=== PATIENT | male | born 1960 | race Caucasian/White ===

== ENCOUNTER → 2016-12-30 | Outpatient (CLI) | payer OTHER ==
[~2016-12-30] MED LIST: ALBUAER2 INH; ASPI81TA28 PO; MOME100A INH
[2016-12-30 18:43] LABS: CHOLESTEROL/HDL RATIO 3.6; PROSTATE SPECIFIC ANTIGEN 4.83 ng/ml (0.000-4.000)
== END | disposition home or self-care (01) ==
LOC: C.LABMFLN 13:04
PROVIDERS: ATTEND Family Medicine
DX: E78.00 Pure hypercholesterolemia, unspecified (principal)

== ENCOUNTER → 2017-05-21 | Outpatient (CLI) | payer OTHER ==
[~2017-05-21] MED LIST changes: +ALBU18002 INH; -ALBUAER2 INH; -ASPI81TA28 PO; +NAPR1TAB9 PO
--- NOTE | 2017-05-21 11:39 | DIAGNOSTIC IMAGING REPORT ---
CHEST 2 VIEWS ROUTINE CLINICAL HISTORY: PRE-OPERATIVE TESTING COMPARISON STUDY: No previous studies for comparison. FINDINGS: The bones soft tissues and hemidiaphragms are normal. The cardiomediastinal silhouette is normal. The lungs are clear. The pulmonary vasculature is normal. IMPRESSION: Negative chest. The above report was generated using voice recognition software. It may contain grammatical, syntax or spelling errors. Electronically signed by: Sav Lane M.D. 05/21/2017 11:37 AM Dictated Date/Time: 05/21/2017 11:37 AM
[2017-05-21 12:53] LABS: BASO % 0.7 %; BASO ABS # 0.04 K/uL (0-0.2); EOS % 7.9 %; EOS ABS # 0.44 K/uL (0-0.5); HEMATOCRIT 44.5 % (42-52); HEMOGLOBIN 15.6 g/dL (14.0-18.0); IG# 0.01 K/uL (0.00-0.02); LYMPH % 30.5 %; LYMPH ABS # 1.71 K/uL (1.2-3.4); MEAN CELL VOLUME 87.6 fL (80-100); MEAN CORPUSCULAR HEMOGLOBIN 30.7 pg (25-34); MEAN CORPUSCULAR HGB CONC 35.1 g/dl (32-36); MEAN PLATELET VOLUME 10.6 fL (7.4-10.4); MONO % 14.1 %; MONO ABS # 0.79 K/uL (0.11-0.59); NEUT % 46.6 %; NEUT ABS # 2.61 K/uL (1.4-6.5); PLATELET COUNT 208 K/uL (130-400); RED CELL DISTRIBUTION WIDTH CV 12.8 % (11.5-14.5); RED CELL DISTRIBUTION WIDTH SD 40.9 fL (36.4-46.3)
[2017-05-21 13:03] LABS: INR 0.9 (0.9-1.1); PTT PATIENT 25.7 SECONDS (21.0-31.0)
[2017-05-21 13:19] LABS: BLOOD UREA NITROGEN 26 mg/dl (7-18); CALCIUM 8.8 mg/dl (8.5-10.1); CARBON DIOXIDE 28 mmol/L (21-32); CREATININE 0.93 mg/dl (0.60-1.40); GLUCOSE 100 mg/dl (70-99); POTASSIUM 4.2 mmol/L (3.5-5.1); SODIUM 136 mmol/L (136-145)
== END | disposition home or self-care (01) ==
LOC: C.CPL 11:02
PROVIDERS: ATTEND Orthopaedic Surgery Sports Medicine
DX: Z01.812 Encounter for preprocedural laboratory examination (principal); Z01.810 Encounter for preprocedural cardiovascular examination; R97.20 Elevated prostate specific antigen [PSA]

== ENCOUNTER → 2017-06-02 | Outpatient (CLI) | payer OTHER ==
[~2017-06-02] MED LIST changes: +GADAVIST IV PRN
--- NOTE | 2017-06-02 09:25 | DIAGNOSTIC IMAGING REPORT ---
PROSTATE MRI COMBO CLINICAL HISTORY: 56 years-old Male presenting with R97.20 Elevated PSAno latex allergy, no iodine allergy, not diab. PSA 4.2 ng/mL. TECHNIQUE: Multisequence, multiplanar MR imaging of the prostate was performed before and after the administration of intravenous contrast. Additional postprocessing was performed on a separate [place] workstation by the radiologist for 3-D volumetric segmentation of the prostate and contouring of region(s) of interest (JC) for targeting. IV contrast: 9.5 cc of Gadavist. COMPARISON: None. FINDINGS: Prostate: The prostate measures 4.8 cm (DynaCAD prostate boundary segmentation volume 31 mL). Mild changes of benign prostatic hyperplasia. Precontrast T1 weighted imaging demonstrates no evidence of intrinsic T1 hyperintensity to suggest hemorrhage. Seminal vesicles normal. No suspicious lesion is apparent in the transition or peripheral zones. Bladder: Normal. Bowel: Visualized portion of the rectum normal. Peritoneum: No free fluid in the pelvis. Lymph nodes: No lymphadenopathy in the visualized portion of the pelvis. Vasculature: Iliac vessels patent. Abdominal wall: Small fat-containing bilateral inguinal hernias. Osseous structures: No suspicious lesions identified. Cystic change seen within the left acetabulum and left femoral head. This likely represents osteoarthritis. IMPRESSION: 1. No suspicious lesions identified within the prostate gland. 2. Mild benign prostatic hyperplasia. Electronically signed by: Dominic Pratt M.D. 06/02/2017 9:24 AM Dictated Date/Time: 06/02/2017 9:09 AM
== END | disposition home or self-care (01) ==
PROVIDERS: ATTEND Urology
DX: R97.20 Elevated prostate specific antigen [PSA] (principal)

== ENCOUNTER 2017-06-10 05:05 | Inpatient (IN) | payer OTHER ==
[2017-05-16 13:36] VITALS: Ht 180.3 cm; Wt 97.7 kg
--- NOTE | 2017-06-03 15:35 | HISTORY & PHYSICAL EXAMINATION ---
DATE OF ADMISSION: 06/10/2017 CHIEF COMPLAINT: Left hip pain. 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 He has about a 6-year history of increasing left hip pain and discomfort that started when he was playing racquetball. It felt like some acute pain in his hip. He thought he had a labral tear. Since then, he has had persistent pain and discomfort in his hip, gradually gotten worse. He has seen Dr. Ramirez and Dr. Schulz both. They have discussed hip surgery, but he had never proceeded. Over time, his pain has gotten worse. If he walks any prolonged period of time, he has got significant discomfort and limitations. He has got groin pain and thigh pain. He has become much less active due to his pain. He would like to have his hip fixed. PAST MEDICAL HISTORY: Asthma. PAST SURGICAL HISTORY: 1. Left forearm fracture, age 5 with limited motion. 2. Colonoscopy. 3. [place] teeth extraction. ALLERGIES: None. CURRENT MEDICINES: 1. Dulera 2 puffs twice a day as needed. 2. ProAir 2 puffs every 6 hours p.r.n. 3. Naproxen p.r.n. 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 He is . One to two drinks per week. He does not smoke. FAMILY HISTORY: Significant for heart disease, rheumatoid arthritis, aneurysm. REVIEW OF SYSTEMS: Negative for diabetes, neurologic problems, vascular problems, bleeding disorders. Denies any chest pain. No shortness of breath. No evidence of DVT or PE. PHYSICAL EXAMINATION: GENERAL: Reveals a healthy, pleasant, middle-aged male. He looks to be in good health. HEENT: Benign. NECK: Supple. No lymphadenopathy. LUNGS: Clear to auscultation. HEART: Regular rate and rhythm. ABDOMEN: Soft, nontender, nondistended. EXTREMITIES: Grossly neurovascularly intact except as follows: Examination of the left hip and leg reveals, patient walks with an antalgic gait. He does limp on his left side. He walks with his foot slightly externally rotated. Leg lengths clinically appear pretty equal. He has got pretty stiff hip with internal rotation of -10. External rotation of 25 degrees. He has got about 10-degree flexion contracture. He is neurologically intact. X-RAYS: X-rays of the left hip reviewed. It shows advanced left hip DJD. He has got complete loss of his joint space. He has got cystic change of the femoral head and acetabulum. 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 His symptoms have just gradually gotten worse over the past 6 years. He has failed conservative treatment and would like to have his left hip replaced. PLAN: We will take him to the operating room and do a left total hip replacement. The risks and benefits of this procedure were explained to patient, including but not limited to DVT, PE, , infection, neurologic injury, vascular injury, bleeding problem, pain, limited range of motion, stiffness, failure to relieve symptoms, incomplete relief of symptoms, need for further surgery in the future, fracture, leg length inequality, nerve palsy, dislocation, etc. The patient understands and desires to proceed. Informed consent was obtained. As far as discharge plans, he is planning to be discharged to home and likely use [facility] home health program. He has stopped his Naprosyn 10 days preoperatively preop. MTDD
[~2017-06-10] VITALS: Ht 180.3 cm; Wt 97.7 kg
[2017-06-10] VITALS (22 sets, daily range): BP systolic 115–148; BP diastolic 64–89; PULSE 53–73; TEMP 36.4–37; O2SAT 92–99
[~2017-06-10 05:05] MED LIST changes: -GADAVIST IV PRN
[2017-06-10] MEDS ORDERED: FAMOTIDINE 20 MG TAB PO SCH (06:00)
[2017-06-10] MEDS ORDERED: LACTATED RINGER'S 1000ML 500 ML IV SCH (06:00)
[2017-06-10] MEDS ORDERED: GABAPENTIN 300 MG CAP PO SCH (06:00)
[2017-06-10] MEDS ORDERED: LACTATED RINGER'S 1000ML 1,000 ML IV SCH (06:00)
[2017-06-10] MEDS ORDERED: CEFAZOLIN 2000MG IV PUSH 10 ML IV SCH (06:00)
[2017-06-10] MEDS ORDERED: METOCLOPRAMIDE HCL 10 MG TAB PO SCH (06:00)
[2017-06-10] MEDS ORDERED: ACETAMINOPHEN 500 MG TAB PO SCH (06:00)
[2017-06-10] MEDS ORDERED: LACTATED RINGER'S 1000ML IV SCH (06:00)
[2017-06-10] MEDS ORDERED: SCOPOLAMINE 1.5 MG TDSY TD SCH (06:00)
[2017-06-10] MEDS ORDERED: PROPOFOL IV EMULSION 10 MG/ML 20 ML VIAL IV ONE ×2 (06:21→08:00)
[2017-06-10] MEDS ORDERED: LIDOCAINE HCL 2% 2 ML VIAL (20MG/ML) ONE ×2 (06:22→07:08)
[2017-06-10] MEDS ORDERED: MIDAZOLAM HCL 1 MG/ML 2ML VIAL ONE (06:22)
[2017-06-10] MEDS ORDERED: FENTANYL CITRATE INJ 50 MCG/1 ML 2 ML VIAL ONE (06:23)
[2017-06-10] MEDS ORDERED: BUPIVACAINE/EPINEPHRINE 0.5% MPF 1:200,000 30 ML VIAL ONE (06:27)
[2017-06-10] MEDS ORDERED: BACITRACIN 50000 UNIT VIAL ONE (06:27)
[2017-06-10] MEDS ORDERED: BUPIVACAINE 0.5 % 5 MG/1 ML PF 10ML VIAL ONE (06:29)
[2017-06-10] MEDS ORDERED: TRANEXAMIC ACID INJ 1,000 MG in SYRINGE 0 ML IV SCH (06:30)
--- NOTE | 2017-06-10 06:43 | History & Physical Bridge Note ---
H&P Re-Evaluation Bridge Note: I have examined the patient, reviewed the History & Physical and in the interval since the performance of the History & Physical I have noted the following changes of clinical significance: No changes noted
[2017-06-10] MEDS ORDERED: MORPHINE SULFATE 1MG/1ML 30ML VIAL IV ONE (06:47)
[2017-06-10] MEDS ORDERED: GLYCOPYRROLATE INJ 0.2 MG/ML VIAL ONE (07:28)
[2017-06-10] MEDS ORDERED: ONDANSETRON INJ 2 MG/ML 2 ML VIAL ONE (07:38)
[2017-06-10] MEDS ORDERED: DEXAMETHASONE SOD INJ 4 MG/ML VIAL ONE (07:39)
[2017-06-10] MEDS ORDERED: EpHEDrine SULFATE INJ 50 MG/ML AMP ONE (07:56)
--- NOTE | 2017-06-10 08:51 | [facility] Post Operative Brief Note ---
Immediate Operative Summary Operative Date Jun 10, 2017. Pre-Operative Diagnosis Left Hip Degenerative Joint Disease Post-Operative Diagnosis Same as preop Procedure(s) Performed Left Total Hip Arthroplasty Surgeon Dr. Solitario Diagrammer Surgeon(s) Matthew Wheeler PA-C Estimated Blood Loss 250 ML Findings Consistent with Post-Op Diagnosis Fluids (cc crystalloids) 1100 cc Specimens A. Left Femoral Head Drains None Anesthesia Type Spinal MAC Complication(s) none Disposition Accompanied Pt To Recover: yes Disposition: Recovery Room / PACU
[2017-06-10] MEDS ORDERED: MAGNESIUM HYDROXIDE SUSP 30 ML UDC PO PRN (09:00)
[2017-06-10] MEDS ORDERED: SILVER SULFADIAZINE 1% CR 50 GM JAR EXT PRN (09:00)
[2017-06-10] MEDS ORDERED: METOCLOPRAMIDE HCL INJ 5 MG/ML 2 ML VIAL IV PRN (09:00)
[2017-06-10] MEDS ORDERED: BISACODYL 10 MG SUPP PR PRN (09:00)
[2017-06-10] MEDS ORDERED: ZOLPIDEM TARTRATE 5 MG TAB PO PRN (09:00)
[2017-06-10] MEDS ORDERED: TAMSULOSIN HCL 0.4 MG CAP PO PRN (09:00)
[2017-06-10] MEDS ORDERED: CEFAZOLIN IV 2,000 MG in DEXTROSE 5% 50ML 50 ML IV SCH (09:00)
[2017-06-10] MEDS ORDERED: ALUMINUM/MAGNESIUM/SIMETH (MAALOX MAX) 30 ML UDC PO PRN (09:00)
[2017-06-10] MEDS ORDERED: ALBUTEROL HFA INHALER 8.5 GM INH PRN (09:00)
[2017-06-10] MEDS ORDERED: SODIUM CHLORIDE 0.9% 1000ML 1,000 ML IV PRN (09:13)
[2017-06-10] MEDS ORDERED: NALOXONE HCL INJ 1 MG in SODIUM CHLORIDE 0.9% 1000ML 1,000 ML IV PRN ×4 (09:13)
[2017-06-10] MEDS ORDERED: LACTATED RINGER'S 1000ML 500 ML IV PRN (09:13)
[2017-06-10] MEDS ORDERED: NALOXONE HCL INJ 0.08 MG in SYRINGE 1.8 ML IV PRN (09:13)
[2017-06-10] MEDS ORDERED: MoRPHine SULFATE PF 1 MG/ML 10 ML AMP/VIAL EPI PRN (09:15)
[2017-06-10] MEDS ORDERED: EpHEDrine SULFATE INJ 50 MG/ML AMP IV PRN (09:15)
[2017-06-10] MEDS ORDERED: NO NARCOTICS OR SEDATIVES SCH (09:15)
[2017-06-10] MEDS ORDERED: PROMETHAZINE HCL INJ 25 MG in SODIUM CHLORIDE 0.9% 50ML 50 ML IV PRN (09:15)
[2017-06-10] MEDS ORDERED: DiphenhydrAMINE HCL 50 MG/ML VIAL IV PRN (09:15)
[2017-06-10] MEDS ORDERED: NALBUPHINE HCL INJ 10 MG/ML AMP IV PRN (09:15)
[2017-06-10] MEDS ORDERED: DC INTRASPINAL MORPHINE SCH (09:15)
[2017-06-10] MEDS ORDERED: NALOXONE HCL 0.4 MG/1 ML VIAL/CARP IV PRN (09:15)
[2017-06-10] MEDS ORDERED: ONDANSETRON INJ 2 MG/ML 2 ML VIAL IV PRN (09:15)
--- NOTE | 2017-06-10 09:16 | Anesthesiology Progress Note ---
Anesthesia Post Op Note Date & Time Jun 10, 2017 at 09:16 Vital Signs Pain Intensity: 0 Vital Signs Past 12 Hours Date Time Temp Pulse Resp B/P (MAP) Pulse Ox O2 Delivery O2 Flow Rate FiO2 06/10/17 09:10 64 20 118/73 100 Oxymask 10 06/10/17 09:00 66 17 126/81 100 Oxymask 10 06/10/17 08:50 36.0 67 14 110/71 100 Oxymask 10 06/10/17 05:40 36.7 57 20 148/89 94 Room Air Notes Mental Status: alert / awake / arousable, participated in evaluation Pt Amnestic to Procedure: Yes Nausea / Vomiting: adequately controlled Pain: adequately controlled Airway Patency, RR, SpO2: stable & adequate BP & HR: stable & adequate Hydration State: stable & adequate Neuraxial Anesthesia: was administered, sensory block is resolving Anesthetic Complications: no major complications apparent
--- NOTE | 2017-06-10 09:32 | DIAGNOSTIC IMAGING REPORT ---
AP PELVIS, CROSSTABLE LATERAL LEFT HIP History: Left total hip arthroplasty. Degenerative arthritis. Postop. FINDINGS: The patient is status post a left total hip arthroplasty. The hardware is intact. No fracture or dislocation. Skin cynthia are in place. IMPRESSION: Left total hip arthroplasty. No evidence for hardware complication. Electronically signed by: Dominic Pratt M.D. 06/10/2017 9:31 AM Dictated Date/Time: 06/10/2017 9:30 AM
--- NOTE | 2017-06-10 09:32 | OPERATIVE REPORT ---
DATE OF OPERATION: 06/10/2017 SURGEON: Heber Solitario MD RADIATION CONTROL TECHNICIAN: KERWIN Crowell PREOPERATIVE DIAGNOSIS: Left hip degenerative joint disease. POSTOPERATIVE DIAGNOSIS: Same. PROCEDURE PERFORMED: Left uncemented ceramic on highly cross-linked polyethylene total hip arthroplasty. COMPLICATIONS: None. ESTIMATED BLOOD LOSS: 250 mL. FLUID REPLACEMENT: 1100 mL crystalloid fluid replacement. ANESTHESIA: Spinal. DRAINS: None. SPECIMENS: Left femoral head sent for pathology. 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 He failed conservative treatment. X-rays reveal advanced left hip DJD. He elected to proceed with surgical treatment. OPERATIVE FINDINGS: Operative findings reveal advanced left hip DJD. He had extensive grade 4 changes of the femoral head and acetabulum. Fairly large medial osteophyte. He had anterior osteophytes around the acetabulum. He also had a fairly contracted and tight hip. OPERATIVE IMPLANTS: Operative implants consisted of: 1. Biomet G7 size 54-mm acetabular shell. 2. A 6.5 cancellous acetabular screws, one at 35 mm length and one at 30 mm length. 3. An apex hole eliminator. 4. Highly cross-linked polyethylene liner with 54 mm outer diameter and 36 mm inner diameter with a currie placed inferior and posterior. 5. A DePuy size 13.5 small stature AML femoral stem. 6. A +5/36 mm ceramic articular ball. OPERATIVE PROCEDURE: The patient was taken to the operating room, identified and placed on the operating table in the supine position. All contact areas were appropriately padded. IV antibiotics were provided by anesthesia team. A spinal anesthetic had been implemented in the holding area. Real catheter was placed in sterile fashion. The patient was then placed in the right lateral decubitus position. An axillary roll was placed. Stulberg hip positioner was used for positioning. Left hip and leg were then prepped and draped in the usual sterile fashion. A posterolateral approach to the left hip was then performed through a curvilinear incision centered over the greater trochanter. Sharp dissection was carried through the subcutaneous tissues down to the level of the IT band and gluteal fascia. The IT band and gluteal fascia were incised longitudinally in line with skin incision. The underlying greater trochanteric bursa was excised. The piriformis and external rotators were tagged and taken off the posterior aspect of the hip joint capsule. Great care was taken throughout the procedure to protect the sciatic nerve at all times. Posterior capsulotomy was then performed leaving a large flap for later repair. Hip was internally rotated and dislocated. Femoral neck osteotomy cut was made with the final cut about 11 mm above the lesser trochanter. Femoral head was removed and sent for pathology. The femur was retracted anteriorly. Attention was then drawn to the acetabulum. The acetabulum labrum was excised. The pulvinar fat was excised. Sequential reaming of the acetabulum was then performed beginning with a size 49 and progressing up to a 53. A 54-mm Biomet G7 acetabular shell was then placed in about 40 degrees of lateral opening and 20 degrees of anteversion. It was fixed with two 6.5 cancellous acetabular screws. An anterior osteophyte was removed. A trial liner was placed. Attention was then drawn to the femur. The proximal femur was entered with cookie cutter followed by canal finder and lateralizing reamer. Sequential reaming of the femur was then performed beginning with a size 9 and progressing up to a 13. We got pretty good chatter even at 12. We broached beginning with a size 10.5 small broach and progressing up to 13.5 small. It was fairly tight. There was a little extra cancellous bone, but I did not think enough to get the large implant in, so we elected to use the 13.5 small implant. Calcar reamer was used to smoothen off the calcar. I then trialed the hip. The +5/36 mm articular ball provided full stability and full extension and external rotation and flexion to 90 degrees and internal rotation to 50 degrees. I ended up placing a lip on the liner to maximize stability in flexion. Attention was then drawn toward placement of these implants. All trial implants were removed. An apex hole eliminator was placed. A highly cross-linked polyethylene liner with a currie placed inferior and posterior was placed. A 13.5 small stature AML femoral stem was placed. We got excellent diaphyseal fit. A +5/36 mm ceramic articular ball was placed. Hip was located and once again found to be stable. Attention was then drawn toward closing. The wound was irrigated with copious amounts of pulsatile lavage solution. I injected locally with 60 mL of 0.5% Marcaine with epinephrine. The posterior capsule and external rotators were repaired through drill holes with #2 Ti-Cron suture. The IT band and gluteal fascia were then closed with #1 PDS suture in running fashion. The subcutaneous tissues were then closed with 2 layers with the deep layer #1 Vicryl suture and subcutaneous tissues with 2-0 Dexon suture in a buried interrupted fashion. The skin was closed with skin cynthia. Leg was then cleaned and dried and a sterile dressing of Xeroform, 4 x 4, ABD pad and foam tape was applied. The patient then transferred to the recovery room in stable condition. The patient tolerated the procedure well with no complications. All needle and sponge counts were correct at the end of the operation. I attest to the content of the Intraoperative Record and any orders documented therein. Any exception s are noted below.
[2017-06-10] MEDS: D5W AND 1/2NSS + 20MEQ KCL 1,000 ML IV SCH ×2 (11:10→19:15)
[2017-06-10] MEDS: KETOROLAC TROMETHAMINE 30 MG/ML VIAL IV. SCH ×3 (11:11→21:03)
[2017-06-10] MEDS: DOCUSATE SODIUM 100 MG CAP PO SCH ×2 (11:12→20:58)
[2017-06-10] MEDS: MULTIVITAMIN TAB PO SCH (11:13)
[2017-06-10] MEDS: PANTOprazole SOD 40 MG TAB PO SCH (11:13)
[2017-06-10] MEDS: ASPIRIN 325 MG ECTAB PO SCH ×2 (11:39→20:59)
[2017-06-10] MEDS: ACETAMINOPHEN 500 MG TAB PO SCH ×2 (12:07→20:58)
[2017-06-10] MEDS ORDERED: TRANEXAMIC ACID INJ 1,000 MG in SODIUM CHLORIDE 0.9% 100ML 100 ML IV ONE (12:30)
[2017-06-10] MEDS: FERROUS GLUCONATE 324 MG TAB PO SCH ×2 (12:49→17:38)
[2017-06-10] MEDS: CHECK SCOPOLAMINE PATCH PLACEMENT SCH ×2 (16:00→23:56)
--- NOTE | 2017-06-10 16:35 | PROGRESS NOTE ---
DATE: 06/10/2017 SUBJECTIVE: A 56-year-old male postop from a left hip replacement. He is doing pretty well. Really not feeling much pain yet. No chest pain or shortness of breath. Not feeling dizzy or lightheaded. OBJECTIVE: VITAL SIGNS: Temperature is 36.8. Vital signs stable. GENERAL: Physical examination reveals a healthy, pleasant, middle-aged male. He is sitting up in bed and looks pretty comfortable. EXTREMITIES: Examination of the left hip and leg reveals the leg to be well aligned. Leg lengths were equal. The dressing is clean, dry and intact. His thigh is soft and supple. He is neurologically intact. He can dorsiflex and plantarflex his foot appropriately. X-RAYS: X-rays of the left hip from the recovery room were reviewed. It shows left uncemented total hip arthroplasty. Components looked to be in good position. No signs of problems. ASSESSMENT: A 56-year-old gentleman postop from a left hip replacement, doing well. His pain is controlled. He is neurologically intact. Hip is located. PLAN: 1. DVT prophylaxis including thigh-high TEDs, SCDs, and aspirin twice a day. 2. PT/OT. Weightbear as tolerated. Left total hip protocol. 3. Pain control. Doing well with current pain regimen. 4. IV antibiotics x24 hours. 5. Disposition: Plan to discharge to home likely with some home health once adequately recovered.
[2017-06-10] MEDS: CEFAZOLIN IV 2,000 MG in SYRINGE 5 ML IV SCH ×2 (16:39→23:56)
[2017-06-10] MEDS: SENNA 8.6 MG TAB PO SCH (20:59)
[2017-06-11] VITALS (8 sets, daily range): BP systolic 110–127; BP diastolic 63–83; PULSE 54–65; TEMP 36.9–37.3; O2SAT 92–95
[2017-06-11] MEDS: D5W AND 1/2NSS + 20MEQ KCL 1,000 ML IV SCH ×2 (01:29→09:23)
[2017-06-11] MEDS ORDERED: ONDANSETRON INJ 2 MG/ML 2 ML VIAL IV PRN (02:00)
[2017-06-11] MEDS ORDERED: OXYCODONE HCL IR 5 MG TAB (IMMEDIATE RELEASE) PO PRN (02:00)
[2017-06-11] MEDS ORDERED: MoRPHine SULFATE 2 MG/ML CARP IV PRN (02:00)
[2017-06-11] MEDS ORDERED: DiphenhydrAMINE HCL 50 MG/ML VIAL IV PRN (02:00)
[2017-06-11] MEDS ORDERED: NURSING VERBAL MED ORDER ONE (03:00)
[2017-06-11] MEDS: KETOROLAC TROMETHAMINE 30 MG/ML VIAL IV. SCH ×4 (03:04→21:27)
[2017-06-11] MEDS: ACETAMINOPHEN 500 MG TAB PO SCH ×3 (06:06→21:28)
[2017-06-11 06:12] LABS: BASO % 0.2 %; BASO ABS # 0.02 K/uL (0-0.2); EOS % 0.9 %; EOS ABS # 0.08 K/uL (0-0.5); HEMATOCRIT 35.5 % (42-52); HEMOGLOBIN 12.3 g/dL (14.0-18.0); IG# 0.03 K/uL (0.00-0.02); LYMPH % 19.7 %; LYMPH ABS # 1.74 K/uL (1.2-3.4); MEAN CELL VOLUME 87.2 fL (80-100); MEAN CORPUSCULAR HEMOGLOBIN 30.2 pg (25-34); MEAN CORPUSCULAR HGB CONC 34.6 g/dl (32-36); MONO % 17.6 %; MONO ABS # 1.56 K/uL (0.11-0.59); NEUT % 61.3 %; NEUT ABS # 5.42 K/uL (1.4-6.5); PLATELET COUNT 172 K/uL (130-400); RED CELL DISTRIBUTION WIDTH CV 12.7 % (11.5-14.5); WHITE BLOOD COUNT 8.85 K/uL (4.8-10.8)
[2017-06-11] MEDS ORDERED: ACET-24 PO (06:34)
[2017-06-11] MEDS ORDERED: RXC5 PO (06:34)
[2017-06-11] MEDS ORDERED: ASPEC325 PO (06:34)
--- NOTE | 2017-06-11 06:36 | Discharge Instructions ---
Discharge Instructions Date of Service Jun 11, 2017. Admission Reason for Admission: Left Hip Degenerative Joint Disease Discharge Discharge Diagnosis / Problem: Left Hip Replacement Discharge Goals Goal(s): Decrease discomfort, Improve function, Increase independence, Improve disease control, Therapeutic intervention Activity Recommendations Activity Limitations: per Instructions/Follow-up section (Total Hip Precautions ) . Instructions / Follow-Up Instructions / Follow-Up ACTIVITY RECOMMENDATIONS: Physical Therapy: * Aggressive physical therapy is not usually needed. You will learn to take care of yourself safely and walk. * Follow the "Hip Precautions Instructions." * In some cases, the social insurance specialist at the hospital will arrange to have a therapist come to your house for the first couple of weeks to help you learn these skills. * You need to practice on your own or with the help of a family member as needed. * When you learn these skills, most of the therapy can be done on your own. Home Exercise: * You were shown a series of exercises in the hospital. Do these exercises three to four times each day including the exercises you were shown in physical therapy. Walking: * Get up and walk several times each day. For the first four weeks, try not to stand or walk for more than one hour at a time. If you do stand or walk for more than one hour, you will not hurt anything, but your leg will likely swell. * As you feel comfortable, you may change from the walker or crutches to a cane and then to independent walking. MEDICATIONS: New Medicine: * You will likely be taking one or more of these medicines: 1. Oxycodone - Take, as directed, when you need it, every four to six hours to control your pain. 2. Aspirin - Thins your blood to lessen the chance of forming a blood clot. * The most common side effects of pain medicine and iron are nausea and constipation. If nausea or constipation is too much of a problem or if you have any questions about your new medicines or doses, call [facility] at [phone]. We will try to help you manage these issues. VERY IMPORTANT TO READ AND REVIEW" Pain: * The immediate post-operative period after hip replacement surgery is often quite painful. * You are given a prescription for pain medicine. You should take it, as directed, when you need it, especially before physical therapy and before going to bed. Pain that interferes with sleep is very common and can last several months. * You will likely need pain medicine for the first two to four weeks. It will not stop all of the pain. The pain will lessen and as you feel better, you may change to milder pain medicine such as Tylenol. * The most common side effects of pain medicine are nausea and constipation, so don't take more than you need. SPECIAL CARE INSTRUCTIONS: TEDs/Elastic Stockings: * The white elastic stockings help limit swelling and prevent blood clots from forming in your legs. The more you wear them, the more they work. * Wear them for six weeks. Prevention of Infection: * Take antibiotics one hour before any dental cleaning, dental work, urological procedure, gastrointestinal procedure or any invasive surgery in order to prevent your new joint from getting infected. * You may get the antibiotics from the doctor performing the procedure or you may call our office at before and we will call in a prescription to the pharmacy of your choice. Things to Watch For: * Drainage from the incision site that occurs more than one week after your surgery. * Severely increased leg pain or swelling. * Increased redness at the incision site. * Fever above 102 degrees Fahrenheit. * Unusual chest pain or shortness of breath. * Unusual pain or burning with urination. Call [facility] at with any of the above problems or if you have any questions about your medicines or recovery. FOLLOW UP VISIT: Make an appointment to see your doctor for approximately two weeks after surgery for a progress check and staple removal by calling the office at . Current Hospital Diet Patient's current hospital diet: Regular Diet Discharge Diet Recommended Diet: Regular Diet Procedures Procedures Performed: Left Total Hip Arthroplasty Pending Studies Studies pending at discharge: no Medical Emergencies . Who to Call and When: Medical Emergencies: If at any time you feel your situation is an emergency, please call [phone] immediately. . Non-Emergent Contact Non-Emergency issues call your: Surgeon . "Provider Documentation" section prepared by Heber Solitario. . VTE Core Measure Inpt VTE Proph given/why not?: Other Anticoagulation, T.E.D. Stockings, SCD's
[2017-06-11 06:39] LABS: CALCIUM 7.9 mg/dl (8.5-10.1); CREATININE 1.03 mg/dl (0.60-1.40); POTASSIUM 3.8 mmol/L (3.5-5.1)
--- NOTE | 2017-06-11 07:08 | PROGRESS NOTE ---
DATE: 06/11/2017 SUBJECTIVE: A 56-year-old gentleman postop day 1 from a left hip replacement. He is doing pretty well. Pain is controlled. Denies any chest pain or shortness of breath. Not feeling dizzy or lightheaded. OBJECTIVE: VITAL SIGNS: Temperature 37.0. Vital signs stable. GENERAL: Reveals a healthy, pleasant, middle-aged male. He is sitting up at his bedside chair and looks comfortable. EXTREMITIES: Examination of left hip and leg reveals the dressing to be clean, dry and intact. Thigh is soft and supple. Leg lengths are equal. He is neurologically intact. LABORATORY DATA: Hemoglobin 12.3. Hematocrit 35.5. Electrolytes are pending. ASSESSMENT: A 56-year-old gentleman postop day 1 from a left hip placement, doing pretty well. Pain is controlled. His hip is located. He is neurologically intact. PLAN: 1. DVT prophylaxis including thigh-high TEDs, SCDs, and aspirin twice a day. 2. PT/OT. Weightbearing as tolerated. Left total hip protocol. 3. Pain control, doing well with current pain regimen. 4. Disposition: Plan to discharge to home with some home health once adequately recovered.
[2017-06-11] MEDS: CHECK SCOPOLAMINE PATCH PLACEMENT SCH ×3 (08:00→23:46)
[2017-06-11] MEDS: FERROUS GLUCONATE 324 MG TAB PO SCH ×3 (09:23→18:02)
[2017-06-11] MEDS: DOCUSATE SODIUM 100 MG CAP PO SCH ×2 (09:24→21:27)
[2017-06-11] MEDS: PANTOprazole SOD 40 MG TAB PO SCH (09:24)
[2017-06-11] MEDS: ASPIRIN 325 MG ECTAB PO SCH ×2 (09:24→21:28)
[2017-06-11] MEDS: MULTIVITAMIN TAB PO SCH (09:24)
[2017-06-11] MEDS: TAPENTADOL ER 50 MG TABCR PO SCH ×2 (09:27→21:28)
[2017-06-11] MEDS: SENNA 8.6 MG TAB PO SCH (21:28)
[2017-06-12] MEDS: KETOROLAC TROMETHAMINE 30 MG/ML VIAL IV. SCH (03:13)
[2017-06-12] MEDS: ACETAMINOPHEN 500 MG TAB PO SCH (06:19)
[2017-06-12 07:53] VITALS: BP 133/78; PULSE 55; TEMP 36.8; O2SAT 94
[2017-06-12] MEDS: CHECK SCOPOLAMINE PATCH PLACEMENT SCH (08:10)
--- NOTE | 2017-06-12 08:11 | PROGRESS NOTE ---
DATE: 06/12/2017 SUBJECTIVE: A 56-year-old male postop day 2 from left total hip replacement. He is doing pretty well. Pain is controlled. No chest pain or shortness of breath. Not feeling dizzy or lightheaded. OBJECTIVE: VITAL SIGNS: Temperature 36.8. Vital signs stable. GENERAL: Reveals a pleasant, middle-aged male. He is sitting up at his bedside chair and looks comfortable. EXTREMITIES: Examination of the left hip reveals the dressing to be clean, dry and intact. Hip is located. Thigh is soft and supple. He is neurologically intact. ASSESSMENT: A 56-year-old gentleman postop day 2 from left total hip replacement, doing well. His pain is controlled. Hip is located. He is neurologically intact. PLAN: 1. DVT prophylaxis including thigh-high TEDs, SCDs, and aspirin twice a day. 2. PT/OT. Weight bear as tolerated. Left total hip protocol. 3. Pain control, doing well with current pain regimen. 4. Disposition: Plan to discharge to home with some home health later today.
[2017-06-12 08:20] VITALS: BP 133/78; PULSE 55; TEMP 36.8; O2SAT 94
[2017-06-12] MEDS: FERROUS GLUCONATE 324 MG TAB PO SCH (08:58)
[2017-06-12] MEDS: ASPIRIN 325 MG ECTAB PO SCH (08:58)
[2017-06-12] MEDS: PANTOprazole SOD 40 MG TAB PO SCH (08:58)
[2017-06-12] MEDS: DOCUSATE SODIUM 100 MG CAP PO SCH (08:58)
[2017-06-12] MEDS: MULTIVITAMIN TAB PO SCH (08:58)
[2017-06-12] MEDS: TAPENTADOL ER 50 MG TABCR PO SCH (08:59)
== END 2017-06-12 10:40 | disposition home health service (06) | DRG 470 ==
LOC: C.ACU 05:05 → C.3E 08:54 → ENRESERV 09:00
PROVIDERS: ADMIT Orthopaedic Surgery Sports Medicine; ATTEND Orthopaedic Surgery Sports Medicine
PROC: 0SRB04A Replacement of Left Hip Joint with Ceramic on Polyethylene Synthetic Substitute, Uncemented, Open Approach (ICD-10-PCS; principal; 2017-06-10 07:00)
DX: M16.12 Unilateral primary osteoarthritis, left hip (principal); J45.909 Unspecified asthma, uncomplicated; Z82.49 Family history of ischemic heart disease and other diseases of the circulatory system; Z82.61 Family history of arthritis

== ENCOUNTER → 2017-06-19 | Outpatient (CLI) | payer OTHER ==
[~2017-06-19] MED LIST changes: +ACET-24 PO; +ASPEC325 PO; +RXC5 PO
--- NOTE | 2017-06-19 15:30 | DIAGNOSTIC IMAGING REPORT ---
ADDENDUM Note is made of a segment of incomplete compression of the posterior tibial vein. This is associated with a slight degree of wall thickening. This potentially represents subsegmental combination of chronic and acute deep venous thrombus formation. IMPRESSION: Reevaluation of the study with additional information from Dr. Richardson suggests segmental deep venous thrombosis of the posterior tibial vein inferior to the knee on a segmental basis. This appears to be a combination of acute and chronic thrombosis. Note this report was to Dr. Richardson Electronically signed by: Sav Lane M.D. 06/19/2017 3:51 PM Dictated Date/Time: 06/19/2017 3:49 PM ORIGINAL REPORT L VENOUS DOPP LOWER EXT UNILAT CLINICAL HISTORY: CALF PAIN pain. Edema. TECHNIQUE: Venous Doppler COMPARISON STUDY: None FINDINGS: Normal study IMPRESSION: Normal study The above report was generated using voice recognition software. It may contain grammatical, syntax or spelling errors. Electronically signed by: Sav Lane M.D. 06/19/2017 3:29 PM Dictated Date/Time: 06/19/2017 3:28 PM
== END | disposition home or self-care (01) ==
LOC: C.ULTR 14:48
PROVIDERS: ATTEND Family Medicine
DX: M79.669 Pain in unspecified lower leg (principal)

== ENCOUNTER 2023-03-16 05:16 | Observation (INO) ==
--- NOTE | 2023-02-15 14:23 | PAT Medication Instructions ---
Medication Instructions Date of Service February 15, 2023 Home Medications Medication Instructions Recorded fluticasone 250 mcg-salmeterol 50 1 inh inhalation BID #180 ea 06/10/22 mcg/dose blistr powdr for inhalation (Wixela Inhub) apixaban 5 mg tablet (Eliquis) 5 mg PO BID #180 tabs 07/12/22 atorvastatin 20 mg tablet 20 mg PO QPM #180 tabs 07/12/22 tadalafil 10 mg tablet (Cialis) 10 mg PO DAILY PRN sexual activity 12/10/22 #14 tabs albuterol sulfate 90 mcg/actuation 1 - 2 puff inhalation 6XD PRN 01/06/23 aerosol inhaler (Ventolin HFA) Wheezing #25.5 grams fluticasone propionate 50 See Rx Instructions .Route 01/06/23 mcg/actuation nasal .COMPLEX #16 grams spray,suspension (Allergy Relief (fluticasone)) terbinafine HCl 1 % topical cream 1 applic topical BID #30 grams 01/06/23 (Lamisil AT) fluticasone 250 mcg-salmeterol 50 mcg/dose blistr powdr for inhalation (Wixela Inhub) 1 inh inhalation BID apixaban 5 mg tablet (Eliquis) 5 mg PO BID atorvastatin 20 mg tablet 20 mg PO QPM tadalafil 10 mg tablet (Cialis) 10 mg PO DAILY PRN albuterol sulfate 90 mcg/actuation aerosol inhaler (Ventolin HFA) 1 - 2 puff inhalation 6XD PRN fluticasone propionate 50 mcg/actuation nasal spray,suspension (Allergy Relief (fluticasone)) See Rx Instructions .Route .COMPLEX terbinafine HCl 1 % topical cream (Lamisil AT) 1 applic topical BID amlodipine 2.5 mg tablet 2.5 mg PO QPM cetirizine 10 mg tablet 10 mg PO DAILY PRN Continue as directed fluticasone propionate 50 mcg/actuation nasal spray,suspension (Allergy Relief (fluticasone)) See Rx Instructions .Route .COMPLEX ASK your prescriber and surgeon apixaban 5 mg tablet (Eliquis) 5 mg PO BID(in order for spinal or epidural anesthesia, Eliquis needs to be stopped 72 hours/3 days before surgery. Please check if okay with doctor that prescribes this to you) STOP taking 24 hours before surgery tadalafil 10 mg tablet (Cialis) 10 mg PO DAILY PRN terbinafine HCl 1 % topical cream (Lamisil AT) 1 applic topical BID DO NOT take the morning of surgery cetirizine 10 mg tablet 10 mg PO DAILY PRN Take morning of surgery With a small sip of water, OTHERWISE NOTHING TO EAT OR DRINK AFTER MIDNIGHT: fluticasone 250 mcg-salmeterol 50 mcg/dose blistr powdr for inhalation (Wixela Inhub) 1 inh inhalation BID albuterol sulfate 90 mcg/actuation aerosol inhaler (Ventolin HFA) 1 - 2 puff inhalation 6XD PRN(use if needed; please bring with you to hospital day of surgery if possible) Take evening before surgery fluticasone 250 mcg-salmeterol 50 mcg/dose blistr powdr for inhalation (Wixela Inhub) 1 inh inhalation BID atorvastatin 20 mg tablet 20 mg PO QPM albuterol sulfate 90 mcg/actuation aerosol inhaler (Ventolin HFA) 1 - 2 puff inh alation 6XD PRN(if needed) amlodipine 2.5 mg tablet 2.5 mg PO QPM Other Notes If you have any questions please call us at [phone] or [phone] or [phone] or [phone]
--- NOTE | 2023-02-17 10:10 | Anesthesiology Consultation ---
Date of Service February 17, 2023 Assessment & Plan (1) Encounter for pre-operative examination: Chart Review Chart Review: Acceptable Risk for Surgery and Patient seen in Pre Admission Testing - Pt is not ideal OPJ candidate (scheduled as 23 hour obs) -Infectious Disease screening: Per [facility] nursing assessment on 02/17/23. No known infectious disease contacts in past 10 days or current infectious disease symptoms. No recent travel outside the country. Open umbilical hernia repair with mesh 10/02/2020 = done under [place] with grade 1 view with Goldsmith #2. ETT #7.5. Atraumatic DL x1. Teaching & Discussion Pre-Anesthesia Teaching/Discussion Notes: Instructed NPO after midnight before surgery,except medications with 15 cc of water. Medication instructions provided according to the [facility] guidelines. History Surgery Operation Date: 03/16/23 08:50 Proposed Procedures p Right Total Hip Arthroplasty - Heber Solitario MD Height/Weight Height: 5 ft 11 in Weight: 116.8 kg Allergies Allergy/AdvReac Type Severity Reaction Status Date / Time No Known Allergies Allergy Verified 02/15/23 12:09 Medications Home Medications Medication Instructions Recorded Confirmed Last Taken fluticasone 250 mcg-salmeterol 50 1 inh inhalation BID #180 ea 06/10/22 02/15/23 Unknown mcg/dose blistr powdr for inhalation (Wixela Inhub) apixaban 5 mg tablet (Eliquis) 5 mg PO BID #180 tabs 07/12/22 02/15/23 Unknown atorvastatin 20 mg tablet 20 mg PO QPM #180 tabs 07/12/22 02/15/23 Unknown tadalafil 10 mg tablet (Cialis) 10 mg PO DAILY PRN sexual activity 12/10/22 02/15/23 Unknown #14 tabs albuterol sulfate 90 mcg/actuation 1 - 2 puff inhalation 6XD PRN 01/06/23 02/15/23 Unknown aerosol inhaler (Ventolin HFA) Wheezing #25.5 grams fluticasone propionate 50 See Rx Instructions .Route 01/06/23 02/15/23 Unknown mcg/actuation nasal .COMPLEX #16 grams spray,suspension (Allergy Relief (fluticasone)) terbinafine HCl 1 % topical cream 1 applic topical BID #30 grams 01/06/23 02/15/23 Unknown (Lamisil AT) amlodipine 2.5 mg tablet 2.5 mg PO QPM 02/15/23 02/15/23 Unknown cetirizine 10 mg tablet 10 mg PO DAILY PRN Allergy Symptoms 02/15/23 02/15/23 Unknown Past Medical History Medical History (Updated 02/17/23 @ 13:09 by Kandice Morton PA-C) Allergic rhinitis Asthma Severe during childhood- improved after age 8 Albuterol use usually with exercise and when sick Back problem Occasional flares with lifting/bending DDD noted on CT imaging in the past Coronary artery calcification Mild- noted incidentally on CT imaging - patient started on statin Dvt femoral (deep venous thrombosis) s/p THERESA 2018 - on blood thinners x 12 weeks- then d/'radha 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 Per pt, had one consult with [facility] cardio, who felt PFO was very small and may not have even caused the TIA. Advised to start ASA 81mg at his own discretion. Pt d/c'd ASA a few years ago. No issues since. Pulmonary embolism 05/2022- s/p Covid- on Eliquis since then TIA (transient ischemic attack) HX- 2014 Exercise / Class Metabolic Activity II 4-5 Yardwork/Stairs/Walk up hill (one flight of stairs - no chest pain or SOB- swims routinely ) Past Family History Family History Brother Diabetes Dementia Cancer CLL Past Surgical History Surgical History (Updated 02/17/23 @ 12:48 by Kandice Morton PA-C) History of colonoscopy History of hand surgery bilateral- dupuytren's release History of umbilical hernia repair (10/02/20) Open Umbilical Hernia Repair - Marcus Lewis MD, FACS Status post total hip replacement, left 06/10/17 [facility] SAB x 4 attempts, eventually successful at L4-5 Past Anesthesia History No Hx of Anesthesia Complications (with exception to difficulty with SAB with previous left THERESA (2018) (four attempts)) and No Family Hx of Anesthesia Complications History of PONV No Hx of PONV and No Hx of Motion Sickness Social History Smoking Status: Never smoker Do You Dip or Chew Tobacco: No Hx Alcohol Use: Yes Alcohol type: wine alcohol intake frequency: a few times a month Hx Substance Use: No Review of Systems Chronic wheezing- stable and mild- improved with inhaler Occ snoring - no hx of sleep study Patient denies chest pain, shortness of breath, dyspnea on exertion, cough, palpitations. No hx of seizures, CA. No hx of blood transfusions Physical Exam Vital Signs VITALS BP 150/85 P 56 TEMP 98.0 SP02 95% RESP 16 Constitutional no acute distress ENMT Mouth: no TMJ clicking Thyromental Distance: > or= 3.5 Finger Breadths (3.5) Mallampati Class: III Missing molars on left side Cap to top left front tooth Neck + limited neck extension Respiratory normal respiratory effort; no respiratory distress Auscultation: lungs clear to auscultation bilaterally; no wheezes Cardiovascular Rate/Rhythm: regular rate and regular rhythm Heart Sounds: no murmur Vessels: no carotid bruit Musculoskeletal Spine: + pain with cervical ROM (mild) Extremities: extremities normal to inspection Psychiatric Orientation: alert Lab Results Anesthesia Preop Results Results Anesthesia Widget: WBC 5.40 K/ul (4.8-10.8) 02/17/23 Hgb 15.2 g/dl (14.0-18.0) 02/17/23 Hct 43.8 % (42.0-52.0) 02/17/23 Plt 204 K/uL (130-400) 02/17/23 Na 138 mmol/L (136-145) 02/17/23 K 4.1 mmol/L (3.5-5.1) 02/17/23 Cl 106 mmol/L (98-107) 02/17/23 CO2 27 mmol/L (21-32) 02/17/23 BUN 21 mg/dl (6-23) 02/17/23 Creat 0.84 mg/dl (0.6-1.4) 02/17/23 Glucose Level 120 mg/dl (70-99(Fasting)) H 02/17/23 PT 11.0 Seconds (9.0-12.0) 02/17/23 PTT 29.0 Seconds (21.0-31.0) 02/17/23 INR 1.0 (0.9-1.1) 02/17/23 Blood Type O Positive 02/17/23 Antibody Screen NEGATIVE 02/17/23 Testing Electrocardiogram Date: 02/17/23 Findings: + SB @ (51bpm) Left axis deviation When compared EKG from May 21, 2017nonspecific T wave abnormality has replaced inverted T waves in inferior leads per cardio Chest X-Ray Date: 02/17/23 Findings: + NAD and + cardiomegaly FINDINGS: PA and lateral chest radiographs are compared to study dated 09/30/2020 and correlated with chest CT dated 07/01/2022. The heart is enlarged noting atherosclerotic calcification of the thoracic aorta. The pulmonary vasculature is noncongested. No airspace consolidation or pleural effusion is identified. Mild atelectasis is seen at the lung bases. There is no pneumothorax. The bony thorax appears intact
[2023-03-16] MEDS ORDERED: ceFAZolin 2000MG 2,000 MG/15 ML SYR IV SCH (06:00)
[2023-03-16] MEDS ORDERED: CeleBREX 200 MG CAP PO SCH (06:00)
[2023-03-16] MEDS ORDERED: TRANEXAMIC ACID 1,000 MG **IV Pre-op IV SCH (06:00)
[2023-03-16] MEDS ORDERED: LR 500ML BOLUS, THEN 15ML/HR IV SCH (06:00)
[2023-03-16] MEDS ORDERED: ACETAMINOPHEN 500 MG TAB PO SCH (06:00)
[2023-03-16] MEDS ORDERED: LR 60ML/HR IV SCH (06:00)
[2023-03-16] MEDS ORDERED: dexAMETHasone**PF** 10 MG/ML VIAL IV SCH (06:00)
[2023-03-16] MEDS ORDERED: Scopolamine 1 MG TDSY TD SCH (06:00)
[2023-03-16] MEDS ORDERED: FAMOTIDINE 20 MG TAB PO SCH (06:00)
[2023-03-16] MEDS ORDERED: METOCLOPRAMIDE HCL 10 MG TABLET PO SCH (06:00)
[2023-03-16] MEDS ORDERED: BUPIVACAINE 0.5 % 5 MG/1 ML PF 10ML VIAL ONE (06:26)
[2023-03-16] MEDS ORDERED: fentaNYL citrate PF 100 MCG/2 ML VIAL ONE (06:35)
[2023-03-16] MEDS ORDERED: MIDAZOLAM HCL 1 MG/ML 2ML VIAL ONE (06:35)
[2023-03-16] MEDS ORDERED: BUPIVACAINE/EPINEPHRINE 0.5% MPF 1:200,000 30 ML VIAL ONE (06:38)
[2023-03-16] MEDS ORDERED: PROPOFOL IV EMULSION 10 MG/ML 20 ML VIAL IV ONE ×2 (06:38→08:16)
[2023-03-16] MEDS ORDERED: LIDOCAINE 2% 2 ML VIAL/AMP(20MG/ML) INFIL ONE (06:38)
[2023-03-16] MEDS ORDERED: MoRPHine SULFATE PF 1 MG/ML 10 ML AMP/VIAL ONE (06:47)
--- NOTE | 2023-03-16 06:52 | History & Physical Bridge Note ---
Date of Service March 16, 2023 History & Physical Bridge Note I have examined the patient, reviewed the History & Physical and in the interval since the performance of the History & Physical I have noted the following changes of clinical significance: no changes noted
[2023-03-16] MEDS ORDERED: MoRPHine SULFATE PF 1 MG/ML 10 ML AMP/VIAL INT SPINAL ONE (06:58)
[2023-03-16] MEDS ORDERED: NALOXONE HCL 0.4 MG/1 ML VIAL/CARP IV PRN ×2 (06:58→11:59)
[2023-03-16] MEDS ORDERED: diphenhydrAMINE 50 MG/ML VIAL IV PRN (06:58)
[2023-03-16] MEDS ORDERED: NALOXONE HCL 1 MG in SODIUM CHLORIDE 0.9% 1,000 ML IV PRN (06:58)
[2023-03-16] MEDS ORDERED: NALBUPHINE HCL 5 MG in SYRINGE 0 ML IV PRN (06:58)
[2023-03-16] MEDS ORDERED: PROMETHAZINE HCL 6.25 MG in SODIUM CHLORIDE 0.9% 50 ML IV PRN (06:58)
[2023-03-16] MEDS ORDERED: ePHEDrine sulfate 50 MG/ML AMP IV PRN (06:58)
[2023-03-16] MEDS ORDERED: HYDROmorphone INJ 0.5 MG/0.5 ML SYR IV PRN (06:58)
[2023-03-16] MEDS ORDERED: NALOXONE HCL 0.08 MG in SYRINGE 1.8 ML IV PRN (06:58)
[2023-03-16] MEDS ORDERED: LACTATED RINGER'S 500 ML IV PRN (06:58)
[2023-03-16] MEDS ORDERED: ONDANSETRON INJ 2 MG/ML 2 ML VIAL IV PRN ×2 (06:58→11:59)
[2023-03-16] MEDS ORDERED: DC INTRASPINAL MORPHINE SCH (07:00)
[2023-03-16] MEDS ORDERED: SODIUM CHLORIDE 0.9% 1,000 ML IV SCH (07:00)
[2023-03-16] MEDS ORDERED: NO NARCOTICS OR SEDATIVES SCH (07:00)
[2023-03-16] MEDS ORDERED: ONDANSETRON INJ 2 MG/ML 2 ML VIAL ONE ×2 (07:10)
[2023-03-16] MEDS ORDERED: ePHEDrine sulfate 50 MG/5 ML SYR ONE (08:18)
--- NOTE | 2023-03-16 08:35 | Operative Report ---
PG Post Operative Report Pre & Post Diagnosis Operation Date: 03/16/23 07:00 Pre-Op Diagnosis: Right Hip Degenerative Joint Disease Post-Op Diagnosis: Right Hip Degenerative Joint Disease I identified the patient and participated in the time-out.: Yes Procedure Operation Date: 03/16/23 07:00 Actual Procedures p Right Total Hip Arthroplasty(Right) - Heber Solitario MD Surgeon Heber Solitario MD Orchestra Leader Matthew Wheeler PA-C Estimated Blood Loss 200 Findings Consistent with Post-Op Diagnosis Operative findings were advanced right hip DJD. He had full-thickness cartilage loss of the femoral head. Moderate-sized joint effusion. Not much osteophyte formation. 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 He had his a left hip replaced about 5 and half years ago done well from this. With the past several years he developed increased pain discomfort of the right hip which is got singularly worse over the past year. Failed conservative measures. X-rays reveal advanced hip arthritis. He elected pro ceed with total hip arthroplasty. Description of Procedure Operative implants consist of: 1 Biomet G7 size 54 mm acetabular shell. 2. Venice hole eliminator. 3. 6.5 cancellous acetabular screws 1 at 35 mm in length and 1 at 25 mm length. 4. Highly cross-linked polyethylene liner with a 54 mm outer diameter and 36 mm inner diameter. 5. DePuy Karaya size 11 KLA femoral stem. 6. +5/36 mm ceramic articular ball. The patient was taken to the operating, identified, and placed on the operating table supine position. The contractors were appropriately padded. IV antibiotics are by anesthesia team. A spinal anesthetic had been implemented holding area. The patient was then placed in the left lateral decubitus position. An axillary roll was placed. A Stulberg hip positioner was used for positioning. Right hip and leg were then prepped and draped in usual sterile fashion. A posterolateral approach to the right hip was then performed to a curvilinear incision centered over the greater trochanteric sharp dissection scalp through subcutaneous tissue down the IT band gluteal fascia by the IT band gluteal fascia incised longitudinally in line with skin incision. The underlying greater bursa was excised. The piriformis and external rotators along with a hip joint capsule posteriorly were then released from the hip as a single layer taking great care to protect the sciatic nerve at all times. The hip was internally rotated and dislocated. A femoral neck osteotomy cut was made with Final Cut 12 mm above the lesser trochanter. Femoral head was removed and sent for pathology. The femur was retracted anteriorly. Attention drawn the acetabulum. The acetabular labrum was excised. The pulmonary fat was excised. Sequential reaming the acetabular was then performed again with size 45 and progressing up to 53. I reamed a little bit with a 54 reamer and then placed a 54 mm Biomet G7 acetabular shell in about 40 degrees lateral opening and 20 degrees of anteversion. It was fixed with two 6.5 cancellous acetabular screws. A trial liner was placed. Attention drawn the femur. The proximal femur was then with a [employer] cutter followed by canal finder. I then broached beginning with size 8 and progressing up to 11. Get excellent fit 11. I had trouble getting the broach the whole way down. We trialed the hip and +5 articular ball seem to fit appropriately. Leg lengths seemed equal. Soft tissue tension seemed appropriate and the hip was fully stable in full extension and external rotation and flexion to 90 degrees and internal Tatian over [address] We elect to place these implants. Nupathe all trial implants were removed. Venice hole limiter was placed. Highly cross-linked polyethylene liner was placed. A DePuy size 11 KLA femoral stem was impacted in position. I a +5/36 mm ceramic articular ball was placed. Hip was located and once again found to be stable. Attention drawn to closing. Wounds irrigated cosigns pulsatile lavage solution. I did inject locally with 60 cc of half percent Marcaine with epinephrine. The posterior capsule and external rotators were then repaired through drill holes in the posterior trochanter with #2 Tycron suture. The IT band gluteal fascia then closed in 1 PDS suture in running fashion. Subcutaneous tissues were then closed with 2 layers the deep layer #1 Vicryl suture and subcutaneous tissues with 2-0 Dexon suture in a buried interrupted fashion. Skin was closed skin cynthia. Leg was then cleaned and dried and sterile dressing was Xeroform, 4 fours, sterile ABD pad, foam tape was applied. Patient then transferred to the recovery room in stable condition. The patient tolerated the procedure well and there were no complications. Matthew Weheler, my physician inventory assistant, was present for the entire procedure. His assistance was essential and required for appropriate patient positioning, prepping and draping, surgical exposure, performing the technical details of the operation, placement the implants, closure of the wound, and placement of the sterile bandage. I attest to the content of the Intraoperative Record and any orders documented therein. Any exceptions are noted below.
--- NOTE | 2023-03-16 09:02 | XRay Report ---
SINGLE VIEW PELVIS; SINGLE VIEW RIGHT HIP CLINICAL HISTORY: Postoperative examination. FINDINGS: An AP portable view of the hips and pelvis with a crosstable lateral portable view of the r ight hip are compared to study dated 12/30/2022. A bipolar right hip arthroplasty is in near-anatomic alignment. At least 2 cortical lag screws transfix the acetabular cup. No acute fracture is identifie d. There are expected postoperative changes overlying the right hip including skin clips, subcutaneou s gas, and soft tissue swelling. A left hip arthroplasty is unchanged in position. Phleboliths are no shreya in the pelvis. IMPRESSION: Expected postoperative findings status post right hip arthroplasty. No acute fracture is seen. ACT 112: Negative or not required by law. Electronically signed by: Perry Gray M.D. 03/16/2023 9:01 AM
[2023-03-16] MEDS ORDERED: ALUMINUM/MAGNESIUM SUSP 30 ML UDC PO PRN (11:59)
[2023-03-16] MEDS ORDERED: TERBINAFINE CR 30 GM TUBE EXT PRN (11:59)
[2023-03-16] MEDS ORDERED: ALBUTEROL HFA 8 GM INHALER INH PRN (11:59)
[2023-03-16] MEDS ORDERED: KETOROLAC 30 MG/ML VIAL IV SCH (11:59)
[2023-03-16] MEDS ORDERED: METOCLOPRAMIDE HCL INJ 5 MG/ML 2 ML VIAL IV PRN (11:59)
[2023-03-16] MEDS ORDERED: bisacodyL 10 MG SUPP PR PRN (11:59)
[2023-03-16] MEDS ORDERED: MAGNESIUM HYDROXIDE SUSP 30 ML UDC PO PRN (11:59)
[2023-03-16] MEDS ORDERED: FLUTICASONE PROPIONATE NA SPR 16 GM BTL NAE PRN (11:59)
[2023-03-16] MEDS ORDERED: PNEUMOCOCCAL VACCINE (PCV20) 20-VAL CONJ-DIP CRM/PF 0.5 ML SYR IM ONE (12:18)
[2023-03-16] MEDS: SODIUM CHLORIDE 0.9% 1,000 ML IV SCH (13:20)
[2023-03-16] MEDS: FLUTICASONE/VILANTEROL 200/25MCG 14 PUFFS/INHALER INH SCH (13:21)
[2023-03-16] MEDS: DOCUSATE SODIUM 100 MG CAP PO SCH ×2 (13:21→21:58)
[2023-03-16] MEDS: MULTIVITAMIN TAB PO SCH (13:22)
[2023-03-16] MEDS: TAMSULOSIN HCL 0.4 MG CAP PO SCH (13:25)
[2023-03-16] MEDS: SENNA 8.6 MG TAB PO SCH ×2 (13:25→21:58)
[2023-03-16] MEDS: ACETAMINOPHEN 500 MG TAB PO SCH ×2 (13:32→21:59)
--- NOTE | 2023-03-16 13:49 | Anesthesiology Progress Note ---
Date of Service March 16, 2023 Anesthesia Post Procedure Vital Signs Vital Signs: Temp Pulse Pulse Resp BP Pulse Ox O2 Del Method 03/16/23 13:00 36.7 C 79 16 156/91 H 95 Nasal Cannula 03/16/23 12:30 36.8 C 80 18 146/89 H 95 Nasal Cannula 03/16/23 12:08 16 95 03/16/23 12:03 36.9 C 63 16 148/81 H 95 Nasal Cannula 03/16/23 11:00 36.5 C 59 L 16 137/80 94 Room Air 03/16/23 10:30 36.5 C 57 L 14 138/81 94 Room Air 03/16/23 10:00 36.5 C 58 L 16 136/77 93 Room Air 03/16/23 09:30 36.5 C 57 L 21 139/83 94 Room Air 03/16/23 09:20 36.5 C 57 L 20 133/80 95 Room Air 03/16/23 09:10 36.5 C 52 L 13 132/79 96 Room Air 03/16/23 09:00 56 L 13 132/84 93 Oxymask 03/16/23 08:50 58 L 15 139/86 96 Oxymask 03/16/23 08:33 36.4 C L 96 H 16 127/74 96 Oxymask 03/16/23 05:49 36.8 C 59 L 20 147/82 H 95 Room Air O2 Flow Rate 03/16/23 13:00 2 03/16/23 12:30 2 03/16/23 12:08 03/16/23 12:03 2 03/16/23 11:00 03/16/23 10:30 03/16/23 10:00 03/16/23 09:30 03/16/23 09:20 03/16/23 09:10 03/16/23 09:00 1 03/16/23 08:50 3 03/16/23 08:33 5 03/16/23 05:49 Pain Intensity Right Hip: Pain Intensity: 0 Transfer of Care Handoff Completed per policy Notes Mental Status: alert / awake / arousable and participated in evaluation Patient Amnestic to Procedure: Yes Nausea / Vomiting: adequately controlled Pain: adequately controlled Airway Patency, RR, SpO2: stable & adequate BP & HR: stable & adequate Hydration State: stable & adequate Neuraxial Anesthesia: was administered and sensory block is resolving Anesthetic Complications: no major complications apparent and Pt Satisfied with anesthetic care
[2023-03-16] MEDS: ceFAZolin 2000MG 2,000 MG/15 ML SYR IV SCH ×2 (14:09→23:57)
[2023-03-16] MEDS: TRANEXAMIC ACID / 0.7% NACL 1,000 MG/100 ML BAG IV SCH ×2 (16:15→16:18)
[2023-03-16] MEDS: Scopolamine CHECK PATCH PLACEMENT SCH (16:20)
[2023-03-16] MEDS: ASCORBIC ACID 500 MG TAB PO SCH (16:21)
[2023-03-16] MEDS ORDERED: amLODIPine BESYLATE 5 MG TAB PO SCH (21:00)
[2023-03-16] MEDS ORDERED: SENNA 8.6 MG TAB PO SCH (21:00)
[2023-03-16] MEDS ORDERED: ATORVASTATIN 20 MG TAB PO SCH (21:00)
[2023-03-17] MEDS ORDERED: HYDROmorphone INJ 0.5 MG/0.5 ML SYR IV PRN (01:00)
[2023-03-17] MEDS ORDERED: traMADol HCL 50 MG TABLET PO PRN (01:00)
[2023-03-17] MEDS ORDERED: CETIRIZINE HCL 10 MG TABLET PO PRN (01:00)
[2023-03-17] MEDS: SODIUM CHLORIDE 0.9% 1,000 ML IV SCH ×2 (01:08→03:31)
[2023-03-17] MEDS: Scopolamine CHECK PATCH PLACEMENT SCH ×2 (01:13→09:11)
[2023-03-17] MEDS: KETOROLAC 30 MG/ML VIAL IV SCH ×2 (01:13→06:42)
[2023-03-17 07:00] LABS: Basophils # (auto) 0.01 K/uL (0.00-0.20); Basophils % (auto) 0.1 %; Eosinophils # (auto) 0.01 K/uL (0.00-0.50); Eosinophils % (auto) 0.1 %; Hematocrit (blood only) 37.6 % (42.0-52.0); Hemoglobin 13.4 g/dl (14.0-18.0); Immature Granulocytes # (auto) 0.04 K/uL (0.01-0.20); Immature Granulocytes % (auto) 0.3 %; Lymphocytes # (auto) 1.33 K/uL (1.20-3.40); Lymphocytes % (auto) 11.5 %; Mean Corpuscular Hemoglobin 30.9 pg (25.0-34.0); Mean Corpuscular Hgb Conc 35.6 g/dL (32.0-36.0); Mean Corpuscular Volume 86.8 fL (80.0-100.0); Mean Platelet Volume 11.5 fL (9.4-12.4); Monocytes # (auto) 1.72 K/uL (0.11-0.59); Monocytes % (auto) 14.9 %; Neutrophils # (auto) 8.43 K/uL (1.40-6.50); Neutrophils % (auto) 73.1 %; Platelet Count 170 K/uL (130-400); RDW Coefficient of Variation 12.3 % (11.5-14.5); Red Blood Count 4.33 M/uL (4.70-6.10); White Blood Count 11.54 K/ul (4.8-10.8)
--- NOTE | 2023-03-17 07:09 | Surgery Progress Note ---
Date of Service March 17, 2023 Assessment & Plan (1) History of right hip replacement: Plan: 62-year-old male postop day 1 from right hip replacement doing well. Pain controlled. Hips located. He is neurologically intact. Does have a history of a DVT and PE in the past and on Eliquis. Plan: 1. DVT prophylaxis including thigh-high teds SCDs we will start him back on Eliquis today but only 2.5 mg twice a day dose for 24 hours then back to regular dose. 2. PT OT weight-bear as tolerated. Right total hip protocol. 3. Pain control doing okay with current pain regimen. 4. 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 He is doing well. Pain is controlled. No chest pain or shortness of breath. Not feeling dizzy or lightheaded. He is hoping to go home today. Had a little trouble voiding last night and had a straight cath in. Physical Exam Physical Exam: Physical examination was a pleasant middle-age male. Sitting up in his bedside chair looks completely comfortable. Examination the right hip reveals dressing clean dry and intact. Leg lengths are equal. He can dorsiflex and plantarflex his foot appropriately. He can do a good straight leg raise with ease. Respiratory: normal respiratory effort, lungs clear to auscultation Cardiovascular: RRR, no murmur, no edema Gastrointestinal (Abdomen): normal bowel sounds, soft, nontender, no hepatosplenomegaly Results & Data Vital Signs (Past 12 Hours) Vital Signs Temp Pulse Pulse Resp BP BP Pulse Ox 03/17/23 04:39 16 94 03/17/23 03:55 36.6 C 55 L 17 125/66 96 03/17/23 03:35 16 94 03/17/23 02:30 16 94 03/17/23 01:30 17 93 03/17/23 00:30 17 93 03/16/23 23:30 16 94 03/16/23 22:54 36.6 C 69 18 125/72 96 03/16/23 22:30 17 94 03/16/23 22:00 81 18 143/81 H 94 03/16/23 21:30 03/16/23 21:30 16 94 03/16/23 20:30 16 93 03/16/23 19:38 36.6 C 93 H 18 136/88 96 03/16/23 19:30 16 94 O2 Del Method 03/17/23 04:39 03/17/23 03:55 Nasal Cannula 03/17/23 03:35 03/17/23 02:30 03/17/23 01:30 03/17/23 00:30 03/16/23 23:30 03/16/23 22:54 Nasal Cannula 03/16/23 22:30 03/16/23 22:00 Room Air 03/16/23 21:30 Room Air 03/16/23 21:30 03/16/23 20:30 03/16/23 19:38 Room Air 03/16/23 19:30 Laboratory Results Hemoglobin is 13.4. Hematocrit 37.6. Electrolytes are stable. PG Care Time/CCT Total # of Minutes Spent Total Time Spent with Patient: Total time spent is greater than 50% in coordination of care (as documented) at patient's floor/unit and/or counseling patient: Coding Level of Care Code None Diagnoses History of right hip replacement Z96.641
[2023-03-17 07:18] LABS: Potassium 4.1 mmol/L (3.5-5.1)
[2023-03-17 07:24] LABS: BUN Creatinine Ratio 24.1 (10-20); Creatinine Clr Calc Pharmacy 113.5 ml/min; Est GFR (African American) 107.2 ml/min; Est GFR (Non-African American) 92.5 ml/min
[2023-03-17] MEDS ORDERED: dexAMETHasone 10 MG in SYRINGE 0 ML IV SCH (08:00)
[2023-03-17] MEDS ORDERED: APIXABAN 2.5 MG TAB PO SCH (09:00)
[2023-03-17] MEDS: FLUTICASONE/VILANTEROL 200/25MCG 14 PUFFS/INHALER INH SCH (09:12)
[2023-03-17] MEDS: ASCORBIC ACID 500 MG TAB PO SCH (09:13)
[2023-03-17] MEDS: TAMSULOSIN HCL 0.4 MG CAP PO SCH (09:14)
[2023-03-17] MEDS: MULTIVITAMIN TAB PO SCH (09:14)
[2023-03-17] MEDS: ACETAMINOPHEN 500 MG TAB PO SCH (09:14)
[2023-03-17] MEDS: DOCUSATE SODIUM 100 MG CAP PO SCH (09:14)
[2023-03-17] MEDS: SENNA 8.6 MG TAB PO SCH (09:14)
--- NOTE | 2023-03-18 15:50 | Discharge Summary ---
Date of Service March 18, 2023 Discharge Data Procedures Performed Operation Date: 03/16/23 07:00 Actual Procedures p Right Total Hip Arthroplasty(Right) - Heber Solitario MD Hospital Course (1) History of right hip replacement: This is a 62 year old patient admitted on 03/16/23 and underwent total hip arthroplasty. He tolerated the procedure well and there were no complications. Transferred to the PACU post op and later to the orthopedic floor for further care. He was given ancef for antibiotic prophylaxis. He was also given BAKARI stockings, SCDs, and eliquis for DVT prophylaxis. Hemoglobin, hematocrit, and vital signs were monitored during his hospital stay and remained stable. Did not require any blood transfusions. There were no complications during his hospital stay. By post op day #1 the patient was tolerating a regular diet, pain was reasonably controlled with oral pain medicine, and he was participating in physical therapy. On post op day #1 the patient was discharged home and set up with home health care. He was given printed discharge instructions including prescriptions for extra strength tylenol, zofran, senokot, flomax, and tramadol. Continue hip precautions. Continue physical therapy, weight bearing as tolerated. Continue BAKARI stockings. Follow up approximately 2 weeks post op or sooner if there are problems or concerns. Coding Level of Care Code None Diagnoses History of right hip replacement Z96.641
== END 2023-03-17 13:22 | disposition home health service (06) ==
LOC: 3E 05:16 → ASU 05:16